=== PATIENT | female | born 1940 | race Caucasian/White ===

== ENCOUNTER 2019-02-13 07:31 | Day surgery (SDC) | payer MEDICARE ==
[~2019-02-13 07:31] MED LIST: Buffered Lidocaine 1% SYRIN* 1 ML/SYRINGE INTRADERM ONE; Dexamethasone IV* 4 MG/ML 1 ML (4 MG) IV SLOW PU ONE; Lactated Ringers 1000 ML Bag* 1,000 ML IV SCH
[2019-02-13] MEDS ORDERED: Dexamethasone IV* 4 MG/ML 1 ML (4 MG) ONE (07:45)
[2019-02-13] MEDS ORDERED: Bupivacaine 0.25% SDV* 30 ML ONE (08:44)
[2019-02-13] MEDS ORDERED: fentaNYL* 50 MCG/ML 2 ML VIAL (100 MCG VIAL) ONE (08:55)
[2019-02-13] MEDS ORDERED: Lidocaine 2% PF * 5 ML VIAL ONE (08:55)
[2019-02-13] MEDS ORDERED: Ketorolac INJ* 30 MG/ML 1 ML VIAL ONE (08:55)
[2019-02-13] MEDS ORDERED: Ondansetron INJ* 2 MG/ML VIAL ONE (08:55)
[2019-02-13] MEDS ORDERED: Midazolam* 1 MG/ML 2 ML VIAL (2 MG) ONE (08:55)
[2019-02-13] MEDS ORDERED: Propofol* 10 MG/ML 20 ML BTL ONE (08:55)
[2019-02-13] MEDS ORDERED: DiMENhydriNATE IV* 50 MG/ML VIAL IV PUSH PRN (08:59)
[2019-02-13] MEDS ORDERED: Ondansetron INJ* 2 MG/ML VIAL IV PRN (08:59)
[2019-02-13] MEDS ORDERED: Naloxone* 0.4 MG/ML 1 ML VIAL IV PRN (08:59)
[2019-02-13] MEDS ORDERED: Levalbuterol 0.63MG/3ML NEB* UNIT OF USE INH ONE (09:25)
[2019-02-13 10:04] VITALS: BP 133/71
--- NOTE | 2019-02-13 13:35 | OP ---
OPERATIVE REPORT: DATE OF OPERATION: 02/13/19 DATE OF : 38 SURGEON: Abad So MD [employer] OPERATOR: NANCIE Echols ANESTHESIOLOGIST: Dr. Zepeda. ANESTHESIA: General. PRE-OP DIAGNOSES: 1. Left middle trigger finger. 2. Left carpal tunnel syndrome. POST-OP DIAGNOSES: 1. Left middle trigger finger. 2. Left carpal tunnel syndrome. OPERATIVE PROCEDURE: 1. Left endoscopic carpal tunnel release. 2. Left middle trigger finger release. INDICATIONS: Ms. Bojorquez is a 78 years old. She had carpal tunnel syndrome and trigger finger. Sh danette had a bit of recurrent carpal tunnel syndrome on the right after prior release 10 years ago. We ta lked about risks and benefits. She wanted to proceed with surgery on the left. ESTIMATED BLOOD LOSS: 2 mL. COMPLICATIONS: None. FINDINGS: See above and below. DESCRIPTION OF PROCEDURE: Ms. Javed was seen in the preoperative holding area. The correct site, s michael, and procedure were identified. We came back to the operating room. The arm was prepped and drap ed in the usual fashion and time-out was performed. The arm was exsanguinated with Esmarch and the tourniquet was inflated to 225 mmHg. I first made a 1 cm incision just ulnar to the palmaris longus tendon. Dissection was carried down. The distal anteb rachial fascia was split transversely. A 2- prong skin hook was placed. The carpal tunnel was dilat ed and dried out and the Micro[employer]ire Endoscopic Carpal Tunnel System was introduced. Once I had it in the appropriate location, the blade was elevated and the release was carried out from distal to proxi mal. Once I had released the entirety of the ligament, I released the distal antebrachial fascia pro ximally with the tenotomy scissors. At this point, the release was looking very good. We irrigated out the wound and the skin was closed with 4-0 Prolene suture and Steri-Strips. A 1 cm incision was made over the middle finger A1 nola. Dissection was carried down and full thic kness flaps raised up to the tendon sheath. The tendon sheath was released longitudinally along the radial third with #15 blade and followed by the tenotomy scissors. The fascia proximally was release d. The adhesions between the tendons were and the tenosynovitis was excised. Wound was ir rigated out. The skin was closed with 4-0 nylon suture. Soft dressings were applied. She was taken to the recovery room in stable condition. [id number]/[facility] #: [id number]
== END 2019-02-13 10:30 | disposition home or self-care (01) ==
LOC: OREAST 07:31
PROVIDERS: ATTEND Orthopaedic Surgery Hand Surgery
DX: G56.02 Carpal tunnel syndrome, left upper limb (principal); M65.332 Trigger finger, left middle finger; I25.10 Atherosclerotic heart disease of native coronary artery without angina pectoris; Z95.5 Presence of coronary angioplasty implant and graft; G47.33 Obstructive sleep apnea (adult) (pediatric); Z87.891 Personal history of nicotine dependence; K21.9 Gastro-esophageal reflux disease without esophagitis; E03.9 Hypothyroidism, unspecified; E11.9 Type 2 diabetes mellitus without complications; Z79.84 Long term (current) use of oral hypoglycemic drugs; I10 Essential (primary) hypertension
CPT/HCPCS: J1100; J1885; J2250; J2405; J2704; J3010; J3490